=== PATIENT | female | born 1980 | race Caucasian/White ===

== ENCOUNTER 2022-04-04 14:23 | Emergency (ER) | payer MEDICAID ==
[~2022-04-04] VITALS: Ht 167.6 cm; Wt 79.4 kg
[2022-04-04] MEDS ORDERED: ONDANSETRON HCL 4MG/2ML INJ IV STA (14:36)
[2022-04-04] MEDS ORDERED: IBUPROFEN 600MG TABLET PO STA (14:36)
[2022-04-04] MEDS ORDERED: SODIUM CHLORIDE 0.9% 1,000 ML IV ONE (14:45)
[2022-04-04 15:19] LABS: BASOPHILS % 0.3 % (0.0-2.0); EOSINOPHILS % 0.9 % (0.0-5.0); HEMATOCRIT. 35.6 % (36.0-48.0); HEMOGLOBIN. 11.5 g/dL (12.0-16.0); LYMPHOCYTES % 26.2 % (20.0-50.0); MEAN CORPUSCULAR HEMOGLOBIN 26.6 pg (28.0-32.0); MEAN CORPUSCULAR VOLUME 82.6 fL (81.0-99.0); MEAN PLATELET VOLUME 9.4 fl (7.4-10.4); MONOCYTES % 11.5 % (2.0-8.0); NEUTROPHILS % 61.1 % (40.0-76.0); PLATELET 256 x1000/uL (130-400); RED BLOOD CELL COUNT 4.31 mill/uL (4.2-5.4); RED CELL DISTRIBUTION WIDTH 15.7 % (11.6-14.6)
[2022-04-04 15:21] LABS: CHLORIDE 110 mEq/L (98-107)
[2022-04-04 16:00] LABS: CLARITY URINE CLEAR (CLEAR); COLOR URINE YELLOW (YELLOW); KETONES URINE NEGATIVE (NEGATIVE); LEUKOCYTE ESTERASE URINE NEGATIVE (NEGATIVE); NITRITE URINE NEGATIVE (NEGATIVE); OCCULT BLOOD URINE NEGATIVE (NEGATIVE); PH URINE 6.5 (4.5-8.0); PROTEIN URINE NEGATIVE (NEGATIVE); SPECIFIC GRAVITY URINE 1.003 (1.005-1.030); UROBILINOGEN URINE 0.2 E.U./dL (0.2-1.0)
[2022-04-04 16:12] LABS: HCG SCREEN NEGATIVE
[2022-04-04] MEDS ORDERED: SODIUM CHLORIDE 0.9% 500 ML IV ONE (19:45)
[2022-04-04 20:46] VITALS: BP 103/51
== END 2022-04-04 22:55 | disposition home or self-care (01) ==
LOC: ER 14:23
DX: R55 Syncope and collapse (principal); R00.0 Tachycardia, unspecified
CPT/HCPCS: 36415; 70450; 71045; 80053; 81003; 81025; 83880; 84484; 84703; 85025; 93005; 96361; 96374; 99285; J2405; J7030; J7040